=== PATIENT | female | born 1980 | race Caucasian/White ===

== ENCOUNTER 2021-07-05 09:33 | Emergency (ER) | payer MEDICAID ==
[~2021-07-05] VITALS: Ht 157.5 cm; Wt 75.0 kg
[~2021-07-05 09:33] MED LIST: DOCU-150 PO; IBUP-2030 PO
[2021-07-05 09:42] VITALS: BP 136/88
[2021-07-05] MEDS ORDERED: ACYC200C31 MT (10:28)
[2021-07-05] MEDS ORDERED: P20 MT (10:28)
== END 2021-07-05 10:37 | disposition home or self-care (01) ==
LOC: ER 09:38
DX: G51.0 Bell's palsy (principal)
CPT/HCPCS: 99283

== ENCOUNTER 2022-06-27 17:27 | Emergency (ER) | payer MEDICAID ==
[~2022-06-27] VITALS: Ht 162.6 cm; Wt 95.0 kg
[~2022-06-27 17:27] MED LIST changes: +ACYC200C31 MT; +P20 MT
[2022-06-27 17:33] VITALS: BP 159/83
[2022-06-27] MEDS ORDERED: IBUPROFEN 600MG TABLET PO STA (18:54)
[2022-06-27] MEDS ORDERED: IBUP-2028 MT (21:56)
== END 2022-06-27 22:00 | disposition home or self-care (01) ==
LOC: ER 18:29
DX: R07.89 Other chest pain (principal); R10.2 Pelvic and perineal pain; M54.50 Low back pain, unspecified; Z98.890 Other specified postprocedural states; V43.52XA Car driver injured in collision with other type car in traffic accident, initial encounter; W22.11XA Striking against or struck by driver side automobile airbag, initial encounter; Y93.89 Activity, other specified; Y92.488 Other paved roadways as the place of occurrence of the external cause
CPT/HCPCS: 71045; 72170; 73090; 81025; 93005; 99284